=== PATIENT | female | born 1995 | race Two or more races ===

== ENCOUNTER → 2025-11-01 | Emergency (ER) | payer OTHER ==
[~2025-11-01] VITALS: Ht 162.6 cm; Wt 61.4 kg
[2025-11-01 16:40] VITALS: TEMP 98.4
[2025-11-01 17:06] LABS: PLATELET COUNT (AUTO) 295 K/uL (150-450); RED BLOOD CELL COUNT(AUTO) 4.81 MIL/uL (4.00-5.20); RED CELL DISTRIBUTION WIDTH 12.7 % (11.5-14.5); WHITE BLOOD COUNT (AUTO) 6.2 K/uL (4.5-11.0)
[2025-11-01 17:14] LABS: CALCIUM, TOTAL 8.8 mg/dL (8.8-10.5); CREATININE 0.59 mg/dL (0.60-1.30); GLOMERULAR FILTR. RATE CALC > 60 mL/min (>60); GLUCOSE,RANDOM 94 mg/dL (70-110); SODIUM SERUM 139 mmol/L (136-145); UREA NITROGEN, BLOOD 11 mg/dL (7-18)
[2025-11-01 17:19] LABS: ASPARTATE AMINOTRANSFERASE 22.0 U/L (15-37); TOTAL PROTEIN, SERUM 7.9 g/dL (6.4-8.2)
[2025-11-01] MEDS: SODIUM CHLORIDE 0.9% 1,000 ML IV ONE (17:19)
[2025-11-01 17:24] LABS: TROPONIN I-HIGH SENSITIVITY Less Than 4 ng/L (<51)
[2025-11-01 17:53] LABS: APPEARANCE,URINE CLEAR (CLEAR); GLUCOSE, URINE (UA) NEGATIVE (NEGATIVE); LEUKOCYTE ESTERASE ,URINE NEGATIVE (NEGATIVE); NITRATE,URINE NEGATIVE (NEGATIVE); OCCULT BLOOD,URINE MODERATE (NEGATIVE); SPECIFIC GRAVITIY, URINE 1.006 (1.003-1.030)
[2025-11-01 18:15] LABS: SQUAMOUS EPITHELIAL CELL,UR Few /LPF (None Seen)
[2025-11-01 19:30] VITALS: BP 125/74; PULSE 71; RESP 18; O2SAT 98
== END | disposition still patient (30) ==
LOC: EMS 16:25
DX: R55 Syncope and collapse (principal); R11.2 Nausea with vomiting, unspecified; R42 Dizziness and giddiness
CPT/HCPCS: 99285; 96360; 71045; 80048; 80076; 81001; 83880; 84484; 84703; 85025; 36415; 93005; J7030